=== PATIENT | male | born 1990 | race Caucasian/White ===

== ENCOUNTER 2022-07-03 02:44 | Outpatient (CLI) | payer SELFPAY | END 2022-07-03 02:45 | disposition critical access hospital (66) | LOC: EMS 02:44 | DX: K92.0 Hematemesis (principal) | CPT/HCPCS: A0425; A0427 ==

== ENCOUNTER 2022-07-03 02:56 | Emergency (ER) | payer SELFPAY ==
--- NOTE | 2022-07-03 03:08 | ED Physician Documentation ---
PD HPI NVD - Stated complaint Stated Complaint: VOMITING COFFEE GROUND EMESIS - Chief complaint Chief Complaint: General - History obtained from History obtained from: Patient, EMS - History of Present Illness Timing - onset: How many hours ago (6), Last night Timing - duration: Hours (6) Timing - details: Abrupt onset, Still present Associated symptoms: Hematemesis (coffee ground appearance after vomiting awhile.). No: Fever, Abdominal pain, Melena Contributing factors: Other (does use cannibis fairly regularly. Denies other substances.). No: Sick contact, Bad food, Alcohol use Improved by: No: Vomiting Worsened by: Eating Similar symptoms before: Diagnosis (He states he has discrete similar episodes in the past with abrupt onset nausea and vomiting and subsequent coffee-ground emesis. These have lasted a day or so. Has been seen in ERs before. Diagnosed with gastritis/esophagitis on the episodes. No EGD.) Review of Systems Constitutional: denies: Fever Nose: denies: Rhinorrhea / runny nose, Congestion Throat: denies: Sore throat Respiratory: denies: Cough GI: reports: Nausea, Vomiting, Hematemesis. denies: Diarrhea, Bloody / black stool Neurologic: denies: Generalized weakness, Near syncope, Altered mental status PD PAST MEDICAL HISTORY - Past Medical History Cardiovascular: None Respiratory: None GI: GERD (with gatritis episodically. Had been taking Omprazole but stopped it few weeks ago. ) Musculoskeletal: None - Past Surgical History Past Surgical History: No - Allergies Allergies/Adverse Reactions: Allergies Allergy/AdvReac Type Severity Reaction Status Date / Time No Known Drug Allergies Allergy Verified 07/03/22 03:04 - Social History Does the pt smoke?: No Does the pt drink ETOH?: No Does the pt have substance abuse?: Yes Substance Use and Type: Marijuana PD ED PE NORMAL - Vitals Vital signs reviewed: Yes - General General: Alert and oriented X 3, Well developed/nourished, Other (appears uncomfortable and having small amounts emesis with coffee ground appearance. No red blood. ) - Neck Neck: Supple, no meningeal sign, No adenopathy - Cardiac Cardiac: No murmur. No: RRR (regular but tachycardic. ) - Respiratory Respiratory: No respiratory distress, Clear bilaterally - Abdomen Abdomen: Normal bowel sounds, Soft, Non distended, No organomegaly, Other (some tneder without guarding in epigastric area. No rebound nor percussion tenderness. ) - Derm Derm: Normal color - Psych Psych: Other (pleasant and conversant. Does have some mild twitchiness to him though. ) Results - Vitals Vitals: Vital Signs - 24 hr 07/03/22 07/03/22 07/03/22 03:02 03:04 03:49 Temperature 37.0 C Heart Rate 126 H 118 H 116 H Respiratory 22 18 24 Rate Blood Pressure 153/101 H 147/82 H O2 Saturation 99 100 99 07/03/22 07/03/22 07/03/22 04:14 04:36 06:20 Temperature Heart Rate 107 H 110 H 108 H Respiratory 22 22 18 Rate Blood Pressure 137/82 H 123/73 113/76 O2 Saturation 98 99 97 Oxygen O2 Source Room air - Labs Labs: Laboratory Tests 07/03/22 07/03/22 07/03/22 03:08 03:08 03:08 WBC 18.0 H RBC 4.81 Hgb 16.6 Hct 49.7 MCV 103.3 H MCH 34.5 H MCHC 33.4 RDW 11.5 L Plt Count 255 MPV 10.8 Neut # (Auto) Not Reportable Lymph # (Auto) Not Reportable Giles # (Auto) Not Reportable Eos # (Auto) Not Reportable Baso # (Auto) Not Reportable Absolute Nucleated RBC Not Reportable Total Counted 100 Band Neuts % (Manual) 1 Abnorm Lymph % (Manual) 0 Nucleated RBC % Not Reportable Neutrophils # (Manual) 15.3 H Lymphocytes # (Manual) 0.2 L Monocytes # (Manual) 2.5 H Eosinophils # (Manual) 0.0 Basophils # (Manual) 0.0 Differential Comment MANUAL DIFFERENTIAL WBC Morphology NORMAL APPEARANCE Platelet Estimate NORMAL (130-450,000) Platelet Morphology NORMAL APPEARANCE RBC Morph Micro Appear NORMAL APPEARANCE Sodium 139 Potassium 5.4 H Chloride 96 L Carbon Dioxide 10 L* Anion Gap 33.0 H BUN 24 H Creatinine 2.1 H Estimated GFR (MDRD) 37 L Glucose 157 H Calcium 10.0 Total Bilirubin 2.1 H AST 226 H ALT 171 H Alkaline Phosphatase 118 Total Protein 8.9 H Albumin 5.3 Globulin 3.6 Albumin/Globulin Ratio 1.5 Lipase 50 Ethyl Alcohol < 5.0 07/03/22 07/03/22 05:55 05:55 WBC 12.4 H RBC 4.13 L Hgb 14.3 Hct 42.7 MCV 103.4 H MCH 34.6 H MCHC 33.5 RDW 11.8 L Plt Count 179 MPV 10.1 Neut # (Auto) 10.7 H Lymph # (Auto) 0.5 L Giles # (Auto) 1.2 H Eos # (Auto) 0.0 Baso # (Auto) 0.0 Absolute Nucleated RBC 0.00 Total Counted Band Neuts % (Manual) Abnorm Lymph % (Manual) Nucleated RBC % 0.0 Neutrophils # (Manual) Lymphocytes # (Manual) Monocytes # (Manual) Eosinophils # (Manual) Basophils # (Manual) Differential Comment WBC Morphology Platelet Estimate Platelet Morphology RBC Morph Micro Appear Sodium 136 Potassium 5.9 H Chloride 107 Carbon Dioxide 14 L Anion Gap 15.0 H BUN 23 H Creatinine 1.6 H Estimated GFR (MDRD) 51 L Glucose 112 H Calcium 8.3 L Total Bilirubin 1.4 H AST 156 H ALT 130 H Alkaline Phosphatase 90 Total Protein 7.0 Albumin 4.0 Globulin 3.0 Albumin/Globulin Ratio 1.3 Lipase 88 H Ethyl Alcohol PD Medical Decision Making - ED course Complexity details: reviewed results, re-evaluated patient (he has stopped vomiting and is taking some sips water/fluid. His labs are off with elevated creatinine and potassium, LFTs. Will hydrate with fluids and give antiemetics. Recheck labs within 2-3 hours. Adjust after that. ), considered differential (He describes discrete episodes of abrupt severe repetitive vomiting and development of coffee-ground emesis after a while. No history of stomach pains or troubles eating between episodes. Consider cannabis hyperemesis versus recurrent gastritis. Less likely gallstones or pancreatitis.), d/w patient Reviewed Lab Results: Notable lab abnormalities with creatinine 2.1 and a low bicarbonate and elevated potassium. LFTs are somewhat elevated but alk phos and lipase are normal. C onsider significant acute dehydration. Will give IV fluids and antiemetic and H2 gui and PPI. Recheck labs in a few hours after hydration. Our hospital is full and does not have beds available. The patient may be a good candidate for observation but unavailable at this time. We will manage him in the ER. He has good improvement in his nausea and does not have any vomiting after medication. He is more comfortable. However his labs are much too significantly off and needs to have further hydration and repeat labs and assessments. ED course: The patient does have SONAL and electrolyte abnormalities. Normal H/H which is good. He would meet OBS criteria but there are no beds available at our facility. Continue treating in ER and watch symptoms and lab improvement. Boarding in ER for now.
[2022-07-03 03:20] LABS: BASOPHILS % (AUTO) 0.3 %; EOSINOPHILS % (AUTO) 26.4 %; HCT - HEMATOCRIT 49.7 % (42.0-52.0); HGB - HEMOGLOBIN 16.6 g/dL (14.0-18.0); LYMPHOCYTES % (AUTO) 2.9 %; MEAN CORPUSCULAR HEMOGLOBIN 34.5 pg (27.0-31.0); MEAN CORPUSCULAR HGB CONC 33.4 g/dL (32.0-36.0); MEAN CORPUSCULAR VOLUME 103.3 fL (80.0-94.0); MEAN PLATELET VOLUME 10.8 fL (7.4-11.4); MONOCYTES % (AUTO) 9.7 %; PLT - PLATELET COUNT 255 10^3/uL (130-450); RED BLOOD COUNT 4.81 10^6/uL (4.70-6.10); RED CELL DISTRIBUTION WIDTH 11.5 % (12.0-15.0)
[2022-07-03 03:24] LABS: ABNORMAL LYMPHS % (MANUAL) 0 %
[2022-07-03] MEDS: FAMOTIDINE 20 MG/2 ML VIAL IVP STA (03:27)
[2022-07-03] MEDS: DROPERIDOL 5 MG/2 ML VIAL IVP STA ×2 (03:27→04:16)
[2022-07-03] MEDS: SODIUM CHLORIDE 0.9% 1,000 ML IV STA ×4 (03:28→10:41)
[2022-07-03 03:36] LABS: BAND NEUTROPHILS % (MANUAL) 1 %; LYMPHOCYTES # (MANUAL) 0.2 10^3/uL (1.5-3.5); LYMPHOCYTES % (MANUAL) 1 %; MONOCYTES # (MANUAL) 2.5 10^3/uL (0.0-1.0); NEUTROPHILS # (MANUAL) 15.3 10^3/uL (1.5-6.6)
[2022-07-03 03:38] LABS: DIFFERENTIAL COMMENT MANUAL DIFFERENTIAL; PLATELET ESTIMATE, MANUAL NORMAL (130-450,000) (NORMAL); PLATELET MORPHOLOGY NORMAL APPEARANCE (NORMAL); RBC MORPHOLOGY (MULTIPLE) NORMAL APPEARANCE (NORMAL); WBC MORPHOLOGY (MULTIPLE) NORMAL APPEARANCE (NORMAL)
[2022-07-03 03:41] LABS: ALBUMIN 5.3 g/dL (3.2-5.5); ALBUMIN/GLOBULIN RATIO 1.5 (1.0-2.2); BILIRUBIN,TOTAL 2.1 mg/dL (0.2-1.0); CREATININE 2.1 mg/dL (0.6-1.2); POTASSIUM 5.4 mmol/L (3.5-5.0); TOTAL PROTEIN 8.9 g/dL (6.7-8.2)
[2022-07-03] MEDS: HYDROmorphone 0.5 MG/0.5 ML SYRINGE IVP STA (03:55)
[2022-07-03] MEDS: diphenhydrAMINE INJ 50 MG/ML VIAL IVP STA (04:18)
[2022-07-03 06:00] LABS: HCT - HEMATOCRIT 42.7 % (42.0-52.0); HGB - HEMOGLOBIN 14.3 g/dL (14.0-18.0); LYMPHOCYTES # (AUTO) 0.5 10^3/uL (1.5-3.5); LYMPHOCYTES % (AUTO) 4.1 %; MEAN CORPUSCULAR HEMOGLOBIN 34.6 pg (27.0-31.0); MEAN CORPUSCULAR HGB CONC 33.5 g/dL (32.0-36.0); MEAN CORPUSCULAR VOLUME 103.4 fL (80.0-94.0); MEAN PLATELET VOLUME 10.1 fL (7.4-11.4); MONOCYTES # (AUTO) 1.2 10^3/uL (0.0-1.0); MONOCYTES % (AUTO) 9.2 %; NEUTROPHILS # (AUTO) 10.7 10^3/uL (1.5-6.6); NEUTROPHILS % (AUTO) 86.1 %; PLT - PLATELET COUNT 179 10^3/uL (130-450); RED BLOOD COUNT 4.13 10^6/uL (4.70-6.10); RED CELL DISTRIBUTION WIDTH 11.8 % (12.0-15.0); WHITE BLOOD COUNT 12.4 x10^3/uL (4.8-10.8)
[2022-07-03 06:12] LABS: ALBUMIN/GLOBULIN RATIO 1.3 (1.0-2.2); BILIRUBIN,TOTAL 1.4 mg/dL (0.2-1.0); CALCIUM 8.3 mg/dL (8.5-10.3); CREATININE 1.6 mg/dL (0.6-1.2); POTASSIUM 5.9 mmol/L (3.5-5.0)
--- NOTE | 2022-07-03 08:02 | ED Physician Documentation ---
ED Addendum - Addendum Addendum: 07/03/22 07:58 Patient signed out to me by Dr. Adamson, boarding in the emergency department awaiting Admission bed. There were no beds available overnight. Patient noted to have acute kidney injury, Coffee-ground emesis, transaminitis,Hyperkalemia. Morning labs show worsening potassium. Discussed this with Dr. Adamson and we decided to repeat it to ensure that this was not a hemolyzed specimen. Patient reports he still feels nauseous. Heart rate in the low 100s.Patient reports that he only had 1 beer last night.He states that the last time he had heavy alcohol use was last week. Abdominal exam is soft, nontender. Patient was previously admitted and January and in early February at the [facility] system. His last creatinine through [facility] everywhere is 1.01 On March 04, 2022. His creatinine has been as high as 2.5 at the end of January At which time he was admitted for similar presentation. He did not require endoscopy during admission in January. On most recent H&P admitting physician mentions that patient has a history of Heavy cannabis use and binge drinking. 07/03/22 11:29 Potassium has remained elevated so we will treat. No hospital beds available at this time so patient remains boarding in the emergency department. 07/03/22 13:10 Notified by RN that patient is feeling better and wanting to leave. I went to reassess the patient. He states that he feels totally back to his usual self and would like to go home as he has left his dog unattended overnight and wants to take care of his dog. He states that he has only been living here for 2 weeks and does not know anybody that can go home and help take care of the dog for him. I explained my concerns that we have not medically stabilized him yet. I explained that his potassium level has been high and that he has recently received medicine for treatment of this which can also cause his blood sugar to be low and in fact it was just so low that we gave him an extra dose of IV sugar. Explained that I would like to keep him here for another hour and to recheck his potassium and his blood sugar to make sure they have stabilized but patient declines and would like to go home right now. I explained that his potassium level remains elevated that this puts him at risk for developing an irregular heart rhythm which could make his heart stop causing or disability. I also explained that if his blood sugar drops again this could also make him feel unwell and also cause him to pass out or also for his heart to stop. Patient is able to state these risks back to me. He is speaking clearly. He does not appear altered or intoxicated. SAROJ Manjarrez is present at the bedside during our conversation.Patient understands that he can return at any time for recheck of his potassium levels if he changes his mind. I also encouraged him to have a close outpatient follow-up if he does not want to come back to the emergency department.He has been tolerating p.o. intake here throughout the morning and afternoon without any further needs for antiemetics. He has had no further episodes of coffee-ground emesis. Departure - Departure Disposition: Against Medical Advice Clinical Impression: Hyperkalemia, Hypoglycemia, Acute kidney injury, Vomiting Condition: Serious Instructions: ED Potassium Excess, ED Blood Sugar Low Non Diabetic Comments: You are leaving AGAINST MEDICAL ADVICE. I am recommending that you stay in the hospital for further treatment. Your potassium level has been high and we did give you medicine to help lower it. I wanted to recheck your potassium level to make sure that it is back in the normal range but you are not wanting to stay for more testing.If your potas sium level remains high or it goes even higher this puts you at risk for an issue with your heart and it could cause your heart to stop.This could cause you to or have permanent disability. One of the medicines we gave you to help lower your potassium also lowers your blood sugar. Your blood sugar has been low here.I would like to observe you for a few more hours to make sure that your blood sugar regulates and is not dropping But again that you are not wanting to leave to take care of of your dog. Please make sure you Eat frequently in the next several hours. If at anytime you develop any worsening symptoms such as feeling weak, vomiting, change your mind you are welcome to come back to the emergency department at any time and can call 911 if needed. I would recommend close follow-up with your primary care provider or walk-in clinic to have your potassium level rechecked if you do not want to come back to the emergency department. This should be done in the next 1 to 2 days. Results - Vitals Vitals: Vital Signs - 24 hr 07/03/22 07/03/22 07/03/22 03:02 03:04 03:49 Temperature 37.0 C Heart Rate 126 H 118 H 116 H Respiratory 22 18 24 Rate Blood Pressure 153/101 H 147/82 H O2 Saturation 99 100 99 07/03/22 07/03/22 07/03/22 04:14 04:36 06:20 Temperature Heart Rate 107 H 110 H 108 H Respiratory 22 22 18 Rate Blood Pressure 137/82 H 123/73 113/76 O2 Saturation 98 99 97 07/03/22 07/03/22 09:10 11:00 Temperature 37.1 C Heart Rate 105 H 99 Respiratory 16 20 Rate Blood Pressure 127/83 H 124/83 H O2 Saturation 100 96 Oxygen O2 Source Room air - EKG (time done) 1029 EKG releavant findings:: EKG personally interpreted by author of this note. Relevant findings are: Rate 92, normal sinus rhythm, QTc 421, no STEMI, No prior available for comparison Rate: Rate (enter#) (92) Rhythm: NSR Intervals: No: Prolonged QT Ischemia: No: ST elevation c/w ischemia Compare to prior EKG: Old EKG unavailable - Labs Labs: Laboratory Tests 07/03/22 07/03/22 07/03/22 03:08 03:08 03:08 WBC 18.0 H RBC 4.81 Hgb 16.6 Hct 49.7 MCV 103.3 H MCH 34.5 H MCHC 33.4 RDW 11.5 L Plt Count 255 MPV 10.8 Neut # (Auto) Not Reportable Lymph # (Auto) Not Reportable Wilkes # (Auto) Not Reportable Eos # (Auto) Not Reportable Baso # (Auto) Not Reportable Absolute Nucleated RBC Not Reportable Total Counted 100 Band Neuts % (Manual) 1 Abnorm Lymph % (Manual) 0 Nucleated RBC % Not Reportable Neutrophils # (Manual) 15.3 H Lymphocytes # (Manual) 0.2 L Monocytes # (Manual) 2.5 H Eosinophils # (Manual) 0.0 Basophils # (Manual) 0.0 Differential Comment MANUAL DIFFERENTIAL WBC Morphology NORMAL APPEARANCE Platelet Estimate NORMAL (130-450,000) Platelet Morphology NORMAL APPEARANCE RBC Morph Micro Appear NORMAL APPEARANCE Sodium 139 Potassium 5.4 H Chloride 96 L Carbon Dioxide 10 L* Anion Gap 33.0 H BUN 24 H Creatinine 2.1 H Estimated GFR (MDRD) 37 L Glucose 157 H Calcium 10.0 Total Bilirubin 2.1 H AST 226 H ALT 171 H Alkaline Phosphatase 118 Total Protein 8.9 H Albumin 5.3 Globulin 3.6 Albumin/Globulin Ratio 1.5 Lipase 50 Urine Color Urine Clarity Urine pH Ur Specific [place] Urine Protein Urine Glucose (UA) Urine Ketones Urine Occult Blood Urine Nitrite Urine Bilirubin Urine Urobilinogen Ur Leukocyte Esterase Ur Microscopic Review Urine Culture Comments Urine Opiates Screen Ur Oxycodone Screen Urine Methadone Screen Ur Propoxyphene Screen Ur Barbiturates Screen Ur Tricyclics Screen Ur Phencyclidine Scrn Ur Amphetamine Screen U Methamphetamines Scrn U Benzodiazepines Scrn Urine Cocaine Screen U Cannabinoids Screen Ethyl Alcohol < 5.0 07/03/22 07/03/22 07/03/22 05:55 05:55 05:55 WBC 12.4 H RBC 4.13 L Hgb 14.3 Hct 42.7 MCV 103.4 H MCH 34.6 H MCHC 33.5 RDW 11.8 L Plt Count 179 MPV 10.1 Neut # (Auto) 10.7 H Lymph # (Auto) 0.5 L Wilkes # (Auto) 1.2 H Eos # (Auto) 0.0 Baso # (Auto) 0.0 Absolute Nucleated RBC 0.00 Total Counted Band Neuts % (Manual) Abnorm Lymph % (Manual) Nucleated RBC % 0.0 Neutrophils # (Manual) Lymphocytes # (Manual) Monocytes # (Manual) Eosinophils # (Manual) Basophils # (Manual) Differential Comment WBC Morphology Platelet Estimate Platelet Morphology RBC Morph Micro Appear Sodium 136 Potassium 5.9 H 5.9 H Chloride 107 Carbon Dioxide 14 L Anion Gap 15.0 H BUN 23 H Creatinine 1.6 H Estimated GFR (MDRD) 51 L Glucose 112 H Calcium 8.3 L Total Bilirubin 1.4 H AST 156 H ALT 130 H Alkaline Phosphatase 90 Total Protein 7.0 Albumin 4.0 Globulin 3.0 Albumin/Globulin Ratio 1.3 Lipase 88 H Urine Color Urine Clarity Urine pH Ur Specific [place] Urine Protein Urine Glucose (UA) Urine Ketones Urine Occult Blood Urine Nitrite Urine Bilirubin Urine Urobilinogen Ur Leukocyte Esterase Ur Microscopic Review Urine Culture Comments Urine Opiates Screen Ur Oxycodone Screen Urine Methadone Screen Ur Propoxyphene Screen Ur Barbiturates Screen Ur Tricyclics Screen Ur Phencyclidine Scrn Ur Amphetamine Screen U Methamphetamines Scrn U Benzodiazepines Scrn Urine Cocaine Screen U Cannabinoids Screen Ethyl Alcohol 07/03/22 07/03/22 07/03/22 08:16 09:05 10:53 WBC RBC Hgb Hct MCV MCH MCHC RDW Plt Count MPV Neut # (Auto) Lymph # (Auto) Wilkes # (Auto) Eos # (Auto) Baso # (Auto) Absolute Nucleated RBC Total Counted Band Neuts % (Manual) Abnorm Lymph % (Manual) Nucleated RBC % Neutrophils # (Manual) Lymphocytes # (Manual) Monocytes # (Manual) Eosinophils # (Manual) Basophils # (Manual) Differential Comment WBC Morphology Platelet Estimate Platelet Morphology RBC Morph Micro Appear Sodium 138 Potassium 5.5 H 5.6 H Chloride 108 Carbon Dioxide 16 L Anion Gap 14.0 H BUN 19 Creatinine 1.4 H Estimated GFR (MDRD) 60 L Glucose 114 H Calcium 8.8 Total Bilirubin AST ALT Alkaline Phosphatase Total Protein Albumin Globulin Albumin/Globulin Ratio Lipase Urine Color YELLOW Urine Clarity CLEAR Urine pH 6.0 Ur Specific [place] 1.025 Urine Protein NEGATIVE Urine Glucose (UA) NEGATIVE Urine Ketones >=80 H Urine Occult Blood NEGATIVE Urine Nitrite NEGATIVE Urine Bilirubin NEGATIVE Urine Urobilinogen 0.2 (NORMAL) Ur Leukocyte Esterase NEGATIVE Ur Microscopic Review NOT INDICATED Urine Culture Comments NOT INDICATED Urine Opiates Screen NEGATIVE Ur Oxycodone Screen NEGATIVE Urine Methadone Screen NEGATIVE Ur Propoxyphene Screen NEGATIVE Ur Barbiturates Screen NEGATIVE Ur Tricyclics Screen NEGATIVE Ur Phencyclidine Scrn NEGATIVE Ur Amphetamine Screen NEGATIVE U Methamphetamines Scrn NEGATIVE U Benzodiazepines Scrn NEGATIVE Urine Cocaine Screen NEGATIVE U Cannabinoids Screen POSITIVE H Ethyl Alcohol
[2022-07-03] MEDS: DEXTROSE 50% ABBOJECT 25 GM/50 ML SYRINGE IVP STA ×2 (09:18→12:48)
[2022-07-03] MEDS: INSULIN REGULAR HUMAN 300 UNIT/3 ML VIAL IVP STA ×2 (09:19→12:01)
[2022-07-03 09:29] LABS: MUDS CUTOFF CONCENTRATIONS CUTOFF CONC BELOW:
[2022-07-03 09:32] LABS: GLUCOSE, URINE (UA) NEGATIVE (NEGATIVE); KETONES,URINE (UA) >=80 mg/dL (NEGATIVE); LEUKOCYTE ESTERASE, URINE NEGATIVE (NEGATIVE); NITRITE,URINE NEGATIVE (NEGATIVE); OCCULT BLOOD,URINE NEGATIVE (NEGATIVE); PROTEIN,URINE NEGATIVE (NEGATIVE); UROBILINOGEN,URINE 0.2 (NORMAL) E.U./dL (NORMAL)
[2022-07-03 09:37] LABS: BILIRUBIN,URINE NEGATIVE (NEGATIVE); CLARITY,URINE CLEAR (CLEAR); ICTOTEST,URINE NEGATIVE
[2022-07-03 09:41] LABS: COCAINE SCREEN URINE NEGATIVE (NEGATIVE); METHAMPHETAMINES SCREEN, URINE NEGATIVE (NEGATIVE); OPIATE SCREEN, URINE NEGATIVE (NEGATIVE); THC CANNABINOID SCREEN, URINE POSITIVE (NEGATIVE)
[2022-07-03 09:42] LABS: AMPHETAMINE SCREEN,URINE NEGATIVE (NEGATIVE); BARBITURATE SCREEN,UR NEGATIVE (NEGATIVE); BENZODIAZEPINES SCREEN, URINE NEGATIVE (NEGATIVE); METHADONE SCREEN, URINE NEGATIVE (NEGATIVE); OXYCODONE SCREEN, URINE NEGATIVE (NEGATIVE); PROPOXYPHENE SCREEN, URINE NEGATIVE (NEGATIVE); TRICYCLIC ANTIDEPRESSANT,URINE NEGATIVE (NEGATIVE)
[2022-07-03 11:06] LABS: CALCIUM 8.8 mg/dL (8.5-10.3); CREATININE 1.4 mg/dL (0.6-1.2); POTASSIUM 5.6 mmol/L (3.5-5.0)
[2022-07-03] MEDS: SODIUM ZIRCONIUM CYCLOSILICATE 5 GM PACKET PO STA (12:02)
[2022-07-03 13:11] VITALS: BP 129/83
== END 2022-07-03 13:41 | disposition left against medical advice (07) ==
LOC: ED 02:56
DX: N17.9 Acute kidney failure, unspecified (principal); E87.5 Hyperkalemia; E16.2 Hypoglycemia, unspecified; R11.10 Vomiting, unspecified; F12.90 Cannabis use, unspecified, uncomplicated
CPT/HCPCS: 36415; 80048; 80053; 80306; 80320; 81003; 83690; 84132; 85025; 93005; 96361; 96374; 96375; 96376; 99284; J1170; J1200; J1815; 81001; 87086